=== PATIENT | female | born 2000 | race Caucasian/White ===

== ENCOUNTER → 2024-04-30 09:17 | Outpatient (REF) | payer BC, SELFPAY ==
[2024-04-30 11:29] LABS: % Basophils 0.3 % (0-2); % Eosinophils 3.3 % (0-6); % Monocytes 9.2 % (1.7-9.3); % Neutrophils 52.2 % (42.2-75.2); Absolute Eosinophils 0.1 10^3/uL (0-0.7); Absolute Lymphocytes 1.1 10^3/uL (1.2-3.4); Absolute Monocytes 0.3 10^3/uL (0.1-0.6); Absolute Neutrophils 1.6 10^3/uL (1.4-6.5); Hematocrit 42.4 % (37.0-47.0); Hemoglobin 14.3 g/dL (12.0-16.0); Mean Corp Hgb Conc. 33.7 g/dL (33.0-37.0); Mean Corpuscular Hgb 33.6 pg (27.0-31.0); Mean Corpuscular Volume 99.5 fL (81.0-99.0); Mean Platelet Volume 11.7 fL (7.4-10.4); Nucleated Red Blood Cells % 0 %; Platelet Count 166 10^3/uL (130-400); Red Blood Cell Count 4.26 10^6/uL (4.20-5.40); Red Cell Dist. Width 11.3 % (11.5-14.5)
[2024-04-30 11:53] LABS: ALT (SGPT) 166 U/L (0-35); AST (SGOT) 73 U/L (14-36); Albumin 5.1 g/dl (3.5-5.0); Alkaline Phosphatase 70 U/L (38-126); Blood Urea Nitrogen 18 mg/dl (7-17); Calcium 10.3 mg/dl (8.4-10.2); Carbon Dioxide 31 mmol/L (22-30); Chloride 97 mmol/L (98-107); Glucose 76 mg/dl (70-99); HDL Cholesterol 91 mg/dl; LDL Cholesterol, Calculated 118 mg/dl; Potassium 4.6 mmol/L (3.5-5.1); Sodium 137 mmol/L (135-145); Total Cholesterol 216 mg/dl (50-199); Total Protein 7.9 g/dl (6.3-8.2); Triglyceride 39 mg/dl (10-149); Very Low Density Lipoprotein 7 mg/dl (0-30); eGFR > 60.00
[2024-04-30 12:15] LABS: Vitamin D, 25-OH*** 34.2 ng/mL (30-80)
[2024-04-30 12:28] LABS: TSH 1.08 uIU/ml (0.47-4.68)
[2024-04-30 12:47] LABS: Vitamin B12 > 1000 pg/ml (239-931)
[2024-05-02 13:31] LABS: Lyme Antibody Screen, EIA Negative (Negative)
== END ==
LOC: REG 09:17
PROVIDERS: ATTENDING PHYSICIAN Nurse Practitioner Psychiatric/Mental Health; FAMILY PHYSICIAN Nurse Practitioner Adult Health
DX: Z51.81 Encounter for therapeutic drug level monitoring (principal); R63.4 Abnormal weight loss; E55.9 Vitamin D deficiency, unspecified; E53.9 Vitamin B deficiency, unspecified; R53.83 Other fatigue; E78.2 Mixed hyperlipidemia; R53.82 Chronic fatigue, unspecified
CPT/HCPCS: 36415; 80053; 80061; 82306; 82607; 84443; 85025; 86618

== ENCOUNTER → 2024-05-14 07:51 | Outpatient (REF) | payer BC, SELFPAY ==
[2024-05-14 08:46] LABS: Erythrocyte Sed Rate 7 mm/hour (0-20)
[2024-05-14 08:53] LABS: ALT (SGPT) 123 U/L (0-35); AST (SGOT) 68 U/L (14-36); Albumin 4.8 g/dl (3.5-5.0); Alkaline Phosphatase 62 U/L (38-126); Amylase 72 U/L (30-110); Blood Urea Nitrogen 18 mg/dl (7-17); Calcium 9.6 mg/dl (8.4-10.2); Carbon Dioxide 31 mmol/L (22-30); Chloride 100 mmol/L (98-107); Glucose 92 mg/dl (70-99); Lipase 141 U/L (23-300); Potassium 4.6 mmol/L (3.5-5.1); Sodium 140 mmol/L (135-145); Total Bilirubin 0.4 mg/dl (0.2-1.3); Total Protein 7.5 g/dl (6.3-8.2); eGFR > 60.00
[2024-05-14 08:59] LABS: C-Reactive Protein < 5.00 mg/L (0.0-10.00)
[2024-05-14 09:15] LABS: FSH 6.6 mIU/ml; Luteinizing Hormone 6.87 mIU/ml; Prolactin 12.6 ng/ml (3.0-18.6)
[2024-05-14 09:31] LABS: Cortisol, Random 18.4 ug/dl
[2024-05-14 09:33] LABS: Hepatitis A IgM Antibody Negative (Negative)
[2024-05-14 09:46] LABS: Hepatitis A Antibody, Total Positive (Negative); Hepatitis B Core Ab, Total Negative (Negative); Hepatitis B Surface Antibody Negative; Hepatitis C Antibody Negative (Negative)
[2024-05-14 16:17] LABS: Lyme Antibody Screen, EIA Negative (Negative)
== END ==
LOC: REG 07:51
PROVIDERS: ATTENDING PHYSICIAN Registered Nurse
DX: R10.84 Generalized abdominal pain (principal); R79.89 Other specified abnormal findings of blood chemistry; N91.2 Amenorrhea, unspecified
CPT/HCPCS: 36415; 80053; 82150; 82533; 83001; 83002; 83690; 84146; 84270; 84402; 84403; 85652; 86140; 86618; 86704; 86706; 86708; 86709; 86803

== ENCOUNTER → 2024-05-22 11:19 | Outpatient (REF) | payer BC, SELFPAY | LOC: RAD 11:19 | PROVIDERS: ATTENDING PHYSICIAN Registered Nurse; FAMILY PHYSICIAN Nurse Practitioner Adult Health | DX: R10.84 Generalized abdominal pain (principal); R79.89 Other specified abnormal findings of blood chemistry | CPT/HCPCS: 74177; Q9967 ==

== ENCOUNTER → 2024-05-29 08:27 | Outpatient (REF) | payer BC, SELFPAY ==
[2024-05-29 09:56] LABS: ALT (SGPT) 111 U/L (0-35); AST (SGOT) 53 U/L (14-36); Albumin 5.5 g/dl (3.5-5.0); Alkaline Phosphatase 64 U/L (38-126); Blood Urea Nitrogen 21 mg/dl (7-17); Calcium 10.3 mg/dl (8.4-10.2); Carbon Dioxide 30 mmol/L (22-30); Chloride 100 mmol/L (98-107); Glucose 91 mg/dl (70-99); Iron 166 ug/dl (37-170); Potassium 4.4 mmol/L (3.5-5.1); Sodium 142 mmol/L (135-145); Total Bilirubin 0.6 mg/dl (0.2-1.3); Total Protein 8.3 g/dl (6.3-8.2); eGFR > 60.00
[2024-05-29 10:20] LABS: Ferritin 39.8 ng/ml (6.24-137); Percent Saturation 46 % (20-50); Total Iron Binding Capacity 355 ug/dl (265-497)
[2024-05-29 23:40] LABS: IgA 133 mg/dl (70-400); IgG 1160 mg/dl (700-1600); IgM 116 mg/dl (40-230)
[2024-05-30 17:14] LABS: IgG Subclass 1 605 mg/dL (240-1118); IgG Subclass 2 255 mg/dL (124-549); IgG Subclass 3 43 mg/dL (21-134); IgG Subclass 4 157 mg/dL (1-123)
[2024-05-30 18:44] LABS: Hepatitis B Surface Antigen Negative (Negative)
[2024-05-30 20:47] LABS: Ceruloplasmin 27 mg/dL (16-45)
[2024-05-30 20:49] LABS: Alpha-1-Antitrypsin 143 mg/dL (90-200)
[2024-05-30 20:50] LABS: LKM-1 Ab (IgG) 0.7 U (0.0-24.9); Soluble Liver Antigen Ab 1.2 U (0.0-24.9)
[2024-05-30 23:40] LABS: tTG IgA Antibody <1.02 FLU (0.00-4.99)
[2024-05-31 00:04] LABS: ANA, IgG Reflex to HEp-2 None Detected (None Detected)
[2024-05-31 02:26] LABS: F-Actin Antibody IgG 7 Units (0-19); Mitochondrial M2 Ab, IgG 5.3 Units (0.0-24.9)
== END ==
LOC: REG 08:27
PROVIDERS: ATTENDING PHYSICIAN Student in an Organized Health Care Education/Training Program; FAMILY PHYSICIAN Registered Nurse
DX: R79.89 Other specified abnormal findings of blood chemistry (principal); R10.84 Generalized abdominal pain
CPT/HCPCS: 36415; 80053; 82103; 82390; 82728; 82784; 82787; 83516; 83540; 83550; 86015; 86038; 86364; 86376; 86381; 87045; 87046; 87328; 87329; 87340; 87427

== ENCOUNTER 2024-06-06 07:27 | Emergency (ER) | payer BC, SELFPAY ==
[2024-06-06 07:29] VITALS: BP 108/77
[2024-06-06 08:01] VITALS: BMI 19.0
[2024-06-06 08:23] LABS: % Basophils 0.3 % (0-2); % Eosinophils 0.5 % (0-6); % Immature Granulocytes 0.3 % (0-0.5); % Lymphocytes 17.2 % (20.5-51.1); % Monocytes 16.2 % (1.7-9.3); % Neutrophils 65.5 % (42.2-75.2); Absolute Lymphocytes 0.7 10^3/uL (1.2-3.4); Absolute Monocytes 0.6 10^3/uL (0.1-0.6); Absolute Neutrophils 2.6 10^3/uL (1.4-6.5); Hematocrit 38.3 % (37.0-47.0); Hemoglobin 13.6 g/dL (12.0-16.0); Mean Corp Hgb Conc. 35.5 g/dL (33.0-37.0); Mean Corpuscular Hgb 34.4 pg (27.0-31.0); Mean Platelet Volume 10.9 fL (7.4-10.4); Nucleated Red Blood Cells % 0 %; Platelet Count 154 10^3/uL (130-400); Red Blood Cell Count 3.95 10^6/uL (4.20-5.40); Red Cell Dist. Width 11.5 % (11.5-14.5)
--- NOTE | 2024-06-06 08:33 | ED.GENMED ---
History of Present Illness
General
Chief Complaint: Abdominal Pain
Time Seen by Provider: 06/06/24 08:04
History of Present Illness
History of Present Illness:
23-year-old female presents the emergency department for evaluation of an upper abdominal 'lump' that she has felt for at least the past week or more. She notes that within the past 1 to 2 months she was noted to have mildly elevated transaminases
on routine lab work, underwent an outpatient CT scan that was unrevealing of biliary pathology. She reportedly has had a downtrend in her transaminases since then. Does not take any prescription medications. Current complaint is for a palpable
lump to the epigastrium, no prior abdominal surgeries
Past History
Past History
ED Past Medical History: None
Social History
Tobacco: Non-smoker
Personal: Single
Living: with family
Review of Systems
Review of Systems
Allergies reviewed?: Yes
All Other Systems: ROS reviewed and negative except as documented in HPI and ROS
Phy Exam
Physical Exam
Physical Exam:
GEN: Well appearing, no immediate distress, thin and underweight
HEENT: Oral mucosa moist, no scleral icterus
Cardiac: Regular rate
Lung: No respiratory distress, no tachypnea
Abdomen: Flat abdomen, palpable mass to the epigastrium approximately 2 to 3 cm above the umbilicus, nonmobile, nonreducible
MSK: No gross deformity or injuries
Skin: Good color, no pallor or jaundice, no rashes
Neuro: AO x3, moves all extremities freely
Psych: Calm, cooperative
Course
Orders/Labs/Results
Orders:
Orders
06/06/24 07:59
Test Result ONCE
06/06/24 08:11
CMP [Comprehensive Metabolic Panel] Urgent
Complete Blood Count/With Diff Urgent
HCG, Serum Qualitative Screen Urgent
Lipase Urgent
Urinalysis Reflex To Culture Urgent
Date Specimen was Collected: 06/06/24
Time Specimen was Collected: 07:59
06/06/24 08:48
US Abdomen Complete/Upper Urgent
Reason For Exam: epigastric mass
Abnormal Lab Results
06/06/24
08:11
WBC 4.0 L 10^3/uL
(4.8-10.8)
RBC 3.95 L 10^6/uL
(4.20-5.40)
MCH 34.4 H pg
(27.0-31.0)
MPV 10.9 H fL
(7.4-10.4)
Absolute Lymphs (auto) 0.7 L 10^3/uL
(1.2-3.4)
Lymphocytes % 17.2 L %
(20.5-51.1)
Monocytes % 16.2 H %
(1.7-9.3)
AST 54 H U/L
(14-36)
ALT 116 H U/L
(0-35)
06/06/24 08:11
06/06/24 08:11
Vital Signs
Initial and Last Documented VS:
Initial Vital Signs
Temp Pulse Resp BP Pulse Ox
97.8 F 90 16 108/77 98
06/06/24 07:29 06/06/24 07:29 06/06/24 07:29 06/06/24 07:29 06/06/24 07:29
Last Documented Vital Signs
Temp Pulse Resp BP Pulse Ox
97.8 F 73 16 90/70 100
06/06/24 07:29 06/06/24 10:19 06/06/24 10:19 06/06/24 10:19 06/06/24 10:19
MDM/Problems Addressed
MDM/Problems Addressed:
Ultrasound shows no abnormalities and transaminases are stable compared to prior labs. Recommend continued outpatient follow-up
*Critical Care Note
Total Time (30-74mins, 75-104mins- exclusive of procedures): Not Applicable
ED Attending Note
-
Portions of this chart may have been created with voice recognition software.� Occasional wrong word or��sound alike� substitutions may have occurred due to the inherent limitations of voice recognition software.
Discharge Plan
Departure
Patient Disposition: Home (Routine Discharge)
Date of Disposition: 06/06/24
Time of Disposition: 10:41
Patient with high blood pressure during this ER visit?: No
Discharge Problem:
Abdominal pain
Instructions: Abdominal Pain
Referrals:
Jb Sorto CRNP [Family Provider] -
Activity Restrictions/Additional Instructions:
Your abdominal ultrasound was normal. There are no visible liver abnormalities. Your liver enzymes are similar to what they have been over the past month. Please continue to follow up with your primary care physician regarding further liver tests
Interventions
Interventions:
*Risk Screen - Suicide Last Done: 06/06/24 07:32
*Neglect/Abuse Screening Last Done: 06/06/24 07:32
*ED COVID-19 Vaccine History Last Done: 06/06/24 08:14
*Nursing Disposition Last Done: 06/06/24 10:58
NR-[facility] Assessment Last Done: 06/06/24 08:14
Discharge Date and Time
Discharge Date/Time: 06/06/24 10:58
Print Language: [id number]
[2024-06-06 08:40] LABS: Urine Albumin Negative (Neg - Trace); Urine Bilirubin Negative (Negative); Urine Character Clear (Clear); Urine Color Yellow; Urine Glucose Negative (Negative); Urine Ketone Negative (Negative); Urine Leukocyte Negative (Negative); Urine Nitrite Negative (Negative); Urine Occult Blood Negative (Negative); Urine Specific Gravity 1.005 (<1.030); Urine Urobilinogen Negative (Neg - 1+)
[2024-06-06 08:41] LABS: ALT (SGPT) 116 U/L (0-35); AST (SGOT) 54 U/L (14-36); Albumin 4.5 g/dl (3.5-5.0); Alkaline Phosphatase 71 U/L (38-126); Blood Urea Nitrogen 12 mg/dl (7-17); Calcium 9.7 mg/dl (8.4-10.2); Carbon Dioxide 30 mmol/L (22-30); Chloride 102 mmol/L (98-107); Estimated Creatinine Clearance 90 ml/min; Glucose 90 mg/dl (70-99); Lipase 114 U/L (23-300); Potassium 4.1 mmol/L (3.5-5.1); Sodium 139 mmol/L (135-145); Total Bilirubin 0.5 mg/dl (0.2-1.3); Total Protein 7.3 g/dl (6.3-8.2); eGFR > 60.00
[2024-06-06 08:49] LABS: HCG, Serum Qualitative Screen Negative
[2024-06-06 09:07] VITALS: BP 107/53
[2024-06-06 10:19] VITALS: BP 90/70
== END 2024-06-06 10:58 | disposition home or self-care (01) ==
LOC: EMR 07:27
PROVIDERS: EMERGENCY PHYSICIAN Emergency Medicine; FAMILY PHYSICIAN Registered Nurse
DX: R10.9 Unspecified abdominal pain (principal); R19.06 Epigastric swelling, mass or lump; Z88.0 Allergy status to penicillin
CPT/HCPCS: 99284; 76700; 80053; 81003; 83690; 84703; 85025

== ENCOUNTER → 2024-07-24 07:44 | Outpatient (REF) | payer BC, SELFPAY ==
[2024-07-25 14:24] LABS: H. pylori Breath Test Negative (Negative)
== END ==
LOC: REG 07:44
PROVIDERS: ATTENDING PHYSICIAN Student in an Organized Health Care Education/Training Program; FAMILY PHYSICIAN Registered Nurse
DX: R10.9 Unspecified abdominal pain (principal); R10.84 Generalized abdominal pain
CPT/HCPCS: 83013